=== PATIENT | female | born 1930 | race Caucasian/White ===

== ENCOUNTER → 2017-02-10 | Outpatient (CLI) | payer MEDICARE | LOC: RAD 09:42 | PROVIDERS: ATTEND Internal Medicine Geriatric Medicine | DX: R10.9 Unspecified abdominal pain (principal) | CPT/HCPCS: 74177; 82565 ==

== ENCOUNTER 2018-10-05 17:56 | Observation (INO) | payer MEDICARE ==
[2018-10-05] MEDS ORDERED: NORMAL SALINE 1000 ML 1,000 ML IV PRN (18:27)
--- NOTE | 2018-10-05 18:58 | PDOC H&P ---
History of Present Illness Admission Date/PCP: 10/05/18 17:56 TERE OSUNKOYA Patient complains of: Dizziness, Shortness of breath, chest pain History of Present Illness: NIKA LUND is a 88 year old female patient known to my practice who presented to the office for scheduled follow up evaluation for hypertension, chronic atrial fibrillation, and coronary arteriosclerosis. She reported not feeling well with listed symptoms and poor appetite and oral intake. She denied any nausea, vomiting, or abdominal pain. No palpitation, orthopnea, or leg swelling. she reported compliance with medications as prescribed. She denied excessive salt or fluid intake. No reported coughing or sputum production. No fever or chills. Her office evaluation revealed significant hypotension with manual reading as low as 77/35 mmHg. In view of findings and associated symptoms as well as advance age she was advised hospitalization to observation telemetry bed for further evaluation and management. 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 Past Medical History Cardiac Medical History: Reports: Atrial Fibrillation, Myocardial Infarction - age 50/stress test dilip olivia 6-8 mo ago ok, Heart Murmur Denies: Congestive Heart Failure, Coronary Artery Disease, Hyperlipidema, Hypertension, Peripheral Vascular Disease, Pulmonary Embolism Pulmonary Medical History: Reports: Asthma, Chronic Obstructive Pulmonary Disease (COPD), Pneumonia - 1 mo ago,found on CT scan, Sleep Apnea - occas c pap Denies: Bronchitis, Respiratory Failure, Tuberculosis Neurological Medical History: Denies: Seizures Renal/ Medical History: Denies: End Stage Renal Disease Malignancy Medical History: Reports: Breast Cancer, Skin Cancer Denies: Cervical Cancer, Lung Cancer, Ovarian Cancer GI Medical History: Reports: Gastroesophageal Reflux Disease Denies: Crohn's Disease, Hepatitis, Hiatal Hernia Musculoskeltal Medical History: Reports: Arthritis - hips,knees,groin Denies: Fibromyalgia Psychiatric Medical History: Reports: Depression Denies: Dementia Hematology: Reports: Anemia - HX OF Denies: Sickle Cell Disease Past Surgical History Past Surgical History: Reports: Cardiac Catheterization, Cholecystectomy, Mastectomy, Tubal Ligation Denies: Amputation, Appendectomy, Section, Colostomy, Coronary Artery Bypass Graft, Gastric Bypass Surgery, Herniorrhaphy, Hysterectomy, Pacemaker, Tonsillectomy Social History Smoking Status: Never Smoker Frequency of Alcohol Use: None Hx Recreational Drug Use: No Hx Prescription Drug Abuse: No Family History Family History: Reviewed & Not Pertinent Parental Family History Reviewed: Yes Children Family History Reviewed: Yes Sibling(s) Family History Reviewed.: Yes Medication/Allergy Home Medications: Omeprazole [Prilosec 20 mg Capsule] 20 mg PO DAILY 06/08/12 Ondansetron HCl [Zofran 4 mg Tablet] 1 tab PO Q6H PRN 01/06/13 Oxycodone HCl 15 mg PO Q4H PRN 01/06/13 Folic Acid/Multivit-Min/Lutein [Centrum Silver Chewable Tablet] 1 tab PO DAILY 09/11/13 Albuterol Sulfate [Proair HFA] 2 puff IH BID 12/20/14 Budesonide/Formoterol Fumarate [Symbicort HFA 160-4.5 mcg Inhaler 6 gm] 2 puff IH Q12 12/20/14 Cetirizine HCl [Zyrtec 10 mg Tablet] 1 tab PO DAILY 12/20/14 Cyanocobalamin (Vitamin B-12) [Vitamin B-12] 1,000 mcg PO DAILY 12/20/14 [place]-3 Fatty Acids/Fish Oil [[place] 3 Fish Oil Softgel] 1 each PO DAILY 12/20/14 Polyethylene Glycol 3350 [Miralax Powder 17 gm/Packet] 1 packet PO QHS 12/20/14 Apixaban [Eliquis 2.5 mg Tablet] 2.5 mg PO BID #60 tablet 09/16/15 Diltiazem HCl [Cardizem Cd 120 mg Capsule] 1 cap.sr PO DAILY #30 cap.sr 09/16/15 Albuterol Sulfate [Ventolin 0.083% Neb 2.5 mg/3 mL Ampul] 2.5 mg NEB Q4HP PRN #60 vial.neb 04/21/16 Azithromycin 250 mg PO DAILY #4 tablet 04/21/16 Prednisone [Deltasone 20 mg Tablet] 3 tab PO DAILY 5 Days tablet 04/21/16 Allergies/Adverse Reactions: acetaminophen [From Tylenol] Allergy (Severe, Verified 12/27/12 10:53) heart races diphenhydramine HCl [From Benadryl] Allergy (Severe, Verified 11/18/12 22:00) [employer] esomeprazole magnesium [From Nexium] Allergy (Severe, Verified 12/27/12 10:53) swelling rofecoxib [From Vioxx] Allergy (Severe, Verified 09/08/13 14:29) Flushing ciprofloxacin [From Cipro] Adverse Reaction (Severe, Verified 09/12/15 12:09) SAME LEVAQUIN levofloxacin [From Levaquin] Adverse Reaction (Severe, Verified 09/12/15 12:10) VEIN REACTION DURING INJECTION Review of Systems Constitutional: PRESENT: anorexia, fatigue, weakness. ABSENT: as per HPI, chills, fever(s), headache(s), night sweats, weight gain, weight loss, other Eyes: PRESENT: visual disturbances - correction with glasses Ears: PRESENT: hearing changes Nose, Mouth, and Throat: ABSENT: as per HPI, headache(s), mouth pain, sore throat, vertigo, other Cardiovascular: PRESENT: chest pain - more localized to posterior region around left shoulder blade, dyspnea on exertion. ABSENT: as per HPI, edema, orthropnea, palpitations, other Respiratory: PRESENT: dyspnea. ABSENT: as per HPI, cough, hemoptysis, sputum, other Gastrointestinal: ABSENT: abdominal pain, constipation, diarrhea, hematemesis, hematochezia, nausea, vomiting Genitourinary: ABSENT: dysuria, hematuria Musculoskeletal: PRESENT: deformity - related to multiple joints involvement with arthritis Integumentary: ABSENT: rash, wounds Neurological: PRESENT: abnormal gait - ambulate with straight cane assistance, dizziness, weakness - generalized. ABSENT: as per HPI, abnormal movements, abnormal speech, confusion, convulsions, focal weakness, frequent falls, lack of coordination, memory loss, numbness, paresthesias, restless legs, syncope, tingling, tremor(s), vertigo, other Psychiatric: ABSENT: anxiety, depression, homidical ideation, suicidal ideation Endocrine: ABSENT: cold intolerance, heat intolerance, polydipsia, polyuria Hematologic/Lymphatic: ABSENT: easy bleeding, easy bruising, lymphadenopathy Allergic/Immunologic: ABSENT: seasonal rhinorrhea Physical Exam General appearance: PRESENT: no acute distress, obese Head exam: PRESENT: atraumatic, normocephalic Eye exam: PRESENT: conjunctiva pink, EOMI, PERRLA. ABSENT: scleral icterus Ear exam: PRESENT: normal external ear exam Mouth exam: PRESENT: moist - fairly Neck exam: PRESENT: full ROM. ABSENT: carotid bruit, JVD, lymphadenopathy, thyromegaly Respiratory exam: PRESENT: clear to auscultation belle Cardiovascular exam: PRESENT: irregular rhythm, +S1, +S2. ABSENT: diastolic murmur, systolic murmur Pulses: PRESENT: +1 pedal pulses bilateral Vascular exam: PRESENT: normal capillary refill. ABSENT: pallor GI/Abdominal exam: PRESENT: normal bowel sounds, soft. ABSENT: distended, guarding, mass, organolmegaly, rebound, tenderness Rectal exam: PRESENT: deferred Extremities exam: ABSENT: pedal edema Musculoskeletal exam: PRESENT: ambulatory - with staright cane assistance, deformity - related to multiple joints involvement with arthritis Neurological exam: PRESENT: alert, awake, oriented to person, oriented to place, oriented to time, oriented to situation, CN II-XII grossly intact. ABSENT: motor sensory deficit Psychiatric exam: PRESENT: appropriate affect, normal mood. ABSENT: homicidal ideation, suicidal ideation Skin exam: PRESENT: dry, warm Results Laboratory Results: Requested admission laboratory testings are pending at the time of my documentation. Assessment & Plan - Diagnosis (1) Hypotension due to hypovolemia Is this a current diagnosis for this admission?: Yes Plan: Patient will receive IV fluid normal saline bolus infusion 1 liter and thereafter maintain at 100 ml /hour. Hold Lasix usage. (2) Dizziness of unknown cause Is this a current diagnosis for this admission?: Yes Plan: Probably due to hypovolemia and resultant hypotension. Patient will receive IV fluid normal saline bolus infusion 1 liter and thereafter maintain at 100 ml /hour. (3) Chest pain of unknown etiology Is this a current diagnosis for this admission?: Yes Plan: Less likely cardiac source but in view of her age and co-morbidities, I will obtain 1ead EKG with serial cardiac enzymes evaluation. (4) Chronic atrial fibrillation Is this a current diagnosis for this admission?: Yes Plan: Continue preadmission medication management. (5) COPD (chronic obstructive pulmonary disease) Qualifiers: COPD type: unspecified COPD Qualified Code(s): J44.9 - Chronic obstructive pulmonary disease, unspecified Is this a current diagnosis for this admission?: Yes Plan: Continue preadmission medication management. (6) Hypothyroidism Qualifiers: Hypothyroidism type: unspecified Qualified Code(s): E03.9 - Hypothyroidism, unspecified Is this a current diagnosis for this admission?: Yes Plan: Continue preadmission medication management. (7) Osteoarthritis involving multiple joints on both sides of body Is this a current diagnosis for this admission?: Yes Plan: Continue preadmission medication management. (8) Chronic pain syndrome Is this a current diagnosis for this admission?: Yes Plan: Continue preadmission medication management. (9) Use of opiates for therapeutic purposes Is this a current diagnosis for this admission?: Yes Plan: Continue preadmission medication management. - Time Time Spent: 50 to 70 Minutes - Inpatient Certification Based on my medical assessment, after consideration of the patient's comorbidities, presenting symptoms, or acuity I expect that the services needed warrant INPATIENT care.: No I certify that my determination is in accordance with my understanding of Medicare's requirements for reasonable and necessary INPATIENT services [42 CFR 412.3e].: No - Plan Summary Plan Summary: See admitting attending physician orders as per outline care plan.
[2018-10-05] MEDS ORDERED: NORMAL SALINE 1000 ML 1,000 ML IV ONE (19:00)
[2018-10-05 19:30] LABS: ABSOLUTE EOSINOPHILS # (AUTO) 0.1 10^3/uL (0.0-0.6); ABSOLUTE LYMPHOCYTES (AUTO) 2.3 10^3/uL (0.5-4.7); ABSOLUTE MONOCYTES (AUTO) 0.5 10^3/uL (0.1-1.4); ABSOLUTE NEUT (AUTO) 4.6 10^3/uL (1.7-8.2); BASOPHILS % (AUTO) 0.3 % (0-2); EOSINOPHILS % (AUTO) 1.3 % (0-6); HEMATOCRIT 35.9 % (36.0-47.0); HEMOGLOBIN 12.1 g/dL (12.0-15.5); LYMPHOCYTES % (AUTO) 31.1 % (13-45); MEAN CORPUSCULAR HEMOGLOBIN 30.4 pg (27.0-33.4); MEAN CORPUSCULAR HGB CONC 33.6 g/dL (32.0-36.0); MEAN CORPUSCULAR VOLUME 91 fl (80-97); MONOCYTES % (AUTO) 6.3 % (3-13); PLATELET COUNT 186 10^3/uL (150-450); RED BLOOD COUNT 3.97 10^6/uL (3.72-5.28); RED CELL DISTRIBUTION WIDTH 13.8 % (11.5-14.0); TOTAL CELLS COUNTED % (AUTO) 100 %; WHITE BLOOD COUNT 7.5 10^3/uL (4.0-10.5)
[2018-10-05 19:57] LABS: ALANINE AMINOTRANSFERASE 21 U/L (9-52); ALBUMIN 3.9 g/dL (3.5-5.0); ALKALINE PHOSPHATASE 118 U/L (38-126); ANION GAP 7 (5-19); ASPARTATE AMINO TRANSFERASE 28 U/L (14-36); BILIRUBIN,DIRECT 0.3 mg/dL (0.0-0.4); BILIRUBIN,TOTAL 0.4 mg/dL (0.2-1.3); BLOOD UREA NITROGEN 10 mg/dL (7-20); CALCIUM 9.9 mg/dL (8.4-10.2); CARBON DIOXIDE 27 mmol/L (22-30); CHLORIDE 104 mmol/L (98-107); CREATINE KINASE 28 U/L (30-135); GLUCOSE 105 mg/dL (75-110); POTASSIUM 4.2 mmol/L (3.6-5.0); SODIUM 138.4 mmol/L (137-145); TOTAL PROTEIN 6.4 g/dL (6.3-8.2)
[2018-10-05 20:08] LABS: CREATINE KINASE MB 0.54 ng/mL (<4.55)
[2018-10-05 20:24] LABS: TROPONIN I < 0.012 ng/mL
[2018-10-05] MEDS ORDERED: OXYCODONE HCL IR 5 MG TABLET PO PRN (22:33)
[2018-10-05] MEDS ORDERED: SIMETHICONE 80 MG TAB.CHEW PO PRN (22:33)
[2018-10-05] MEDS ORDERED: ALBUTEROL SULFATE HFA (90 MCG/PUFF) 200 PUFF/8.5 GM MDI IH PRN (22:33)
[2018-10-05] MEDS ORDERED: NITROGLYCERIN 0.4 MG/TAB 25 TAB/BOTTLE SL PRN (22:33)
--- NOTE | 2018-10-05 22:42 | RADIOLOGY REPORT (SQ) ---
EXAM DESCRIPTION: XR CHEST 2 VIEWS COMPLETED DATE/TME: 10/05/2018 00:00 CLINICAL HISTORY: 88 years Female, chest pain, shortness of breath COMPARISON: 04/21/16 NUMBER OF VIEWS/TECHNIQUE: 2, Frontal, Lateral FINDINGS: Increased lung volume, new small bandlike and streaky opacities of the left lower lung field, normal cardiac silhouette, atherosclerosis, and intact bony thorax.Upper abdominal clips. IMPRESSION: Small left lower lobar atelectasis/pneumonia.
[2018-10-05] MEDS ORDERED: APIXABAN 2.5 MG TABLET PO ONE (23:30)
[2018-10-06] MEDS: FAMOTIDINE 20 MG TABLET PO SCH ×2 (00:34→10:57)
[2018-10-06] MEDS ORDERED: APIXABAN 2.5 MG TABLET ONE (01:11)
[2018-10-06 01:47] LABS: CREATINE KINASE MB 0.36 ng/mL (<4.55)
[2018-10-06 01:52] LABS: TROPONIN I < 0.012 ng/mL
[2018-10-06 08:39] LABS: TROPONIN I < 0.012 ng/mL
[2018-10-06] MEDS ORDERED: POLYETHYLENE GLYCOL 3350 POWDER 17 GM/1 PACKET PO SCH (10:00)
[2018-10-06] MEDS ORDERED: CYANOCOBALAMIN (VITAMIN B-12) 1,000 MCG TABLET PO SCH (10:00)
[2018-10-06] MEDS ORDERED: CETIRIZINE 5 MG TABLET PO SCH (10:00)
[2018-10-06] MEDS ORDERED: APIXABAN 2.5 MG TABLET PO SCH (10:00)
[2018-10-06] MEDS ORDERED: METOPROLOL TARTRATE 50 MG TABLET PO SCH (10:00)
[2018-10-06] MEDS ORDERED: BUDESONIDE/FORMOTEROL 160-4.5 MCG 60 PUFF/6 GM MDI IH SCH (10:00)
[2018-10-06] MEDS ORDERED: OMEGA-3 ACID ETHYL ESTERS 1 GM CAPSULE PO SCH (10:00)
[2018-10-06] MEDS ORDERED: DILTIAZEM HCL 120 MG CAP.SR.24H PO SCH (10:00)
--- NOTE | 2018-10-06 13:39 | EKG REPORT ---
SEVERITY:- ABNORMAL ECG - ATRIAL FIBRILLATION BORDERLINE LEFT AXIS DEVIATION LOW VOLTAGE THROUGHOUT : Confirmed by: Marisol Grey MD 06-Oct-2018 13:39:00
--- NOTE | 2018-10-06 18:00 | PDOC DISCHARGE SUMMARY ---
General - Admit/Disc Date/PCP Admission Date/Primary Care Provider: 10/05/18 17:56 TERE PETROS Discharge Date: 10/06/18 - Discharge Diagnosis (1) Hypotension due to hypovolemia Is this a current diagnosis for this admission?: Yes (2) Dizziness of unknown cause Is this a current diagnosis for this admission?: Yes (3) Chest pain of unknown etiology Is this a current diagnosis for this admission?: Yes (4) Chronic atrial fibrillation Is this a current diagnosis for this admission?: Yes (5) COPD (chronic obstructive pulmonary disease) Is this a current diagnosis for this admission?: Yes (6) Hypothyroidism Is this a current diagnosis for this admission?: Yes (7) Osteoarthritis involving multiple joints on both sides of body Is this a current diagnosis for this admission?: Yes (8) Chronic pain syndrome Is this a current diagnosis for this admission?: Yes (9) Use of opiates for therapeutic purposes Is this a current diagnosis for this admission?: Yes - Additional Information Home Medications: Albuterol Sulfate [Proair HFA Inhalation Aerosol 8.5 gm MDI] 2 puff IH Q12HP PRN 10/05/18 Apixaban [Eliquis 2.5 mg Tablet] 2.5 mg PO Q12 10/05/18 Budesonide/Formoterol Fumarate [Symbicort HFA 160-4.5 mcg Inhaler 6 gm] 2 puff IH Q12 10/05/18 Cyanocobalamin (Vitamin B-12) [Vitamin B-12 1000 mcg Tablet] 1,000 mcg PO DAILY 10/05/18 Dexlansoprazole [Dexilant 60 mg Capsule] 60 mg PO DAILY 10/05/18 Diltiazem HCl [Diltiazem 24Hr ER] 120 mg PO DAILY 10/05/18 Levocetirizine Dihydrochloride [Xyzal] 5 mg PO DAILY 10/05/18 Metoprolol Tartrate [Lopressor 50 mg Tablet] 50 mg PO Q12 10/05/18 Nitroglycerin [Nitrostat 0.4 mg (1/150 Gr) Tabs 25/Bottle] 0.4 mg SL Q5MP PRN 10/05/18 [place]-3 Fatty Acids/Fish Oil [Fish Oil 1,000 mg Capsule] 1 cap PO DAILY 10/05/18 Oxycodone HCl 15 mg PO Q6HP PRN 10/05/18 Polyethylene Glycol 3350 [Miralax Powder 17 gm/Packet] 17 gm PO DAILY 10/05/18 Simethicone [Gas-X] 125 mg PO QIDP PRN 10/05/18 History of Present Illness Patient complains of: Dizziness, Shortness of breath, chest pain History of Present Illness: NIKA LUND is a 88 year old female patient known to my practice who presented to the office for scheduled follow up evaluation for hypertension, chronic atrial fibrillation, and coronary arteriosclerosis. She reported not feeling well with listed symptoms and poor appetite and oral intake. She denied any nausea, vomiting, or abdominal pain. No palpitation, orthopnea, or leg swelling. she reported compliance with medications as prescribed. She denied excessive salt or fluid intake. No reported coughing or sputum production. No fever or chills. Her office evaluation revealed significant hypotension with manual reading as low as 77/35 mmHg. In view of findings and associated symptoms as well as advance age she was advised hospitalization to observation telemetry bed for further evaluation and management. 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 Hospital Course Hospital Course: She was managed with IV normal saline hydration with resolution of her presenting symptoms including dizziness, shortness of breath, and chest pain. Her cardiac evaluation with serial cardiac enzymes and EKG were within normal range. Her laboratory assessment did not suggest any significant electrolyte abnormality. In view of her low blood pressure she was instructed to continue withholding Lasix usage. She will follow up in the office as instructed upon discharge. Physical Exam Vital Signs: Temp Pulse Resp BP Pulse Ox 98.3 F 60 16 100/49 L 98 10/06/18 16:19 10/06/18 16:19 10/06/18 16:19 10/06/18 16:19 10/06/18 16:19 Intake & Output 10/05/18 10/06/18 10/07/18 06:59 06:59 06:59 Intake Total 877 218 Balance 877 218 Weight 61.4 kg General appearance: PRESENT: no acute distress Head exam: PRESENT: atraumatic, normocephalic Eye exam: PRESENT: conjunctiva pink, EOMI, PERRLA. ABSENT: scleral icterus Ear exam: PRESENT: normal external ear exam Mouth exam: PRESENT: moist Respiratory exam: PRESENT: clear to auscultation belle Cardiovascular exam: PRESENT: irregular rhythm, +S1, +S2. ABSENT: diastolic murmur, systolic murmur Vascular exam: PRESENT: normal capillary refill. ABSENT: pallor GI/Abdominal exam: PRESENT: normal bowel sounds, soft. ABSENT: distended, guarding, mass, organolmegaly, rebound, tenderness Extremities exam: ABSENT: pedal edema Musculoskeletal exam: PRESENT: deformity - relatd to multiple joints involvement with athritis Neurological exam: PRESENT: alert, awake, oriented to person, oriented to place, oriented to time, oriented to situation, CN II-XII grossly intact. ABSENT: motor sensory deficit Psychiatric exam: PRESENT: appropriate affect, normal mood. ABSENT: homicidal ideation, suicidal ideation Skin exam: PRESENT: dry, warm Results Laboratory Results: 10/05/18 19:21 10/05/18 19:21 10/05/18 10/05/18 19:21 19:21 WBC 7.5 RBC 3.97 Hgb 12.1 Hct 35.9 L MCV 91 MCH 30.4 MCHC 33.6 RDW 13.8 Plt Count 186 Seg Neutrophils % 61.0 Lymphocytes % 31.1 Monocytes % 6.3 Eosinophils % 1.3 Basophils % 0.3 Absolute Neutrophils 4.6 Absolute Lymphocytes 2.3 Absolute Monocytes 0.5 Absolute Eosinophils 0.1 Absolute Basophils 0.0 Sodium 138.4 Potassium 4.2 Chloride 104 Carbon Dioxide 27 Anion Gap 7 BUN 10 Creatinine 0.84 Est GFR ( Amer) > 60 Est GFR (Non-Af Amer) > 60 Glucose 105 Calcium 9.9 Total Bilirubin 0.4 AST 28 ALT 21 Alkaline Phosphatase 118 Total Protein 6.4 Albumin 3.9 10/05/18 10/05/18 10/06/18 19:21 19:21 01:16 Creatine Kinase 28 L 22 L CK-MB (CK-2) 0.54 Troponin I < 0.012 10/06/18 10/06/18 10/06/18 01:16 07:20 07:20 Creatine Kinase 21 L CK-MB (CK-2) 0.36 0.40 Troponin I < 0.012 < 0.012 Impressions: Chest X-Ray 10/05/18 00:00 IMPRESSION: Small left lower lobar atelectasis/pneumonia. Qualifiers - * PATIENT BEING DISCHARGED WITH ANY OF THE FOLLOWING DIAGNOSIS: No Plan Discharge Plan: D/C Home today., Follow up in the office as instructed upon discharge.
[2018-10-06 18:40] VITALS: BP 124/74
== END 2018-10-06 19:18 | disposition home or self-care (01) ==
LOC: 4W 17:56
PROVIDERS: ADMIT Internal Medicine Geriatric Medicine; ATTEND Internal Medicine Geriatric Medicine
DX: I95.89 Other hypotension (principal); E86.1 Hypovolemia; R07.89 Other chest pain; R42 Dizziness and giddiness; I48.2 Chronic atrial fibrillation; J44.9 Chronic obstructive pulmonary disease, unspecified; E03.9 Hypothyroidism, unspecified; M15.8 Other polyosteoarthritis; G89.4 Chronic pain syndrome; I10 Essential (primary) hypertension; I25.10 Atherosclerotic heart disease of native coronary artery without angina pectoris; I25.2 Old myocardial infarction; K21.9 Gastro-esophageal reflux disease without esophagitis; G47.33 Obstructive sleep apnea (adult) (pediatric); R63.0 Anorexia; M1A.9XX0 Chronic gout, unspecified, without tophus (tophi); R53.1 Weakness; R26.9 Unspecified abnormalities of gait and mobility; Z79.891 Long term (current) use of opiate analgesic; Z79.899 Other long term (current) drug therapy; Z23 Encounter for immunization; Z85.3 Personal history of malignant neoplasm of breast; Z85.828 Personal history of other malignant neoplasm of skin; Z90.49 Acquired absence of other specified parts of digestive tract; Z90.10 Acquired absence of unspecified breast and nipple
CPT/HCPCS: 36415 ×2; 82553 ×2; 82550 ×2; 85025; 80053 ×2; 84484 ×2; 71046; 90686; 93005; 93010; G0378 ×2; G0379; G0008; A9270 ×8; J3490; J7030 ×2; 90471

== ENCOUNTER 2020-08-07 05:03 | Emergency (ER) | payer MEDICARE ==
[2020-08-07 06:59] LABS: APPEARANCE,URINE CLEAR; BILIRUBIN,URINE NEGATIVE (NEGATIVE); COLOR,URINE YELLOW; GLUCOSE, URINE NEGATIVE (NEGATIVE); KETONES,URINE NEGATIVE (NEGATIVE); LEUKOCYTE ESTERASE,URINE NEGATIVE (NEGATIVE); NITRITE,URINE NEGATIVE (NEGATIVE); PROTEIN,URINE NEGATIVE (NEGATIVE); URINE SPECIFIC GRAVITY 1.006; UROBILINOGEN,URINE NEGATIVE mg/dL (<2.0)
[2020-08-07 07:02] LABS: ABSOLUTE EOSINOPHILS # (AUTO) 0.1 10^3/uL (0.0-0.6); ABSOLUTE LYMPHOCYTES (AUTO) 2.1 10^3/uL (0.5-4.7); ABSOLUTE MONOCYTES (AUTO) 0.5 10^3/uL (0.1-1.4); ABSOLUTE NEUT (AUTO) 4.5 10^3/uL (1.7-8.2); BASOPHILS % (AUTO) 0.3 % (0-2); EOSINOPHILS % (AUTO) 1.9 % (0-6); HEMATOCRIT 32.6 % (36.0-47.0); HEMOGLOBIN 11.2 g/dL (12.0-15.5); LYMPHOCYTES % (AUTO) 28.5 % (13-45); MEAN CORPUSCULAR HGB CONC 34.4 g/dL (32.0-36.0); MEAN CORPUSCULAR VOLUME 90 fl (80-97); MONOCYTES % (AUTO) 7.4 % (3-13); PLATELET COUNT 197 10^3/uL (150-450); RED BLOOD COUNT 3.61 10^6/uL (3.72-5.28); RED CELL DISTRIBUTION WIDTH 14.3 % (11.5-14.0); SEGMENTED NEUTROPHILS % (AUTO) 61.9 % (42-78); TOTAL CELLS COUNTED % (AUTO) 100 %; WHITE BLOOD COUNT 7.2 10^3/uL (4.0-10.5)
[2020-08-07 07:23] LABS: ALBUMIN 3.2 g/dL (3.5-5.0); ALKALINE PHOSPHATASE 128 U/L (38-126); ASPARTATE AMINO TRANSFERASE 44 U/L (14-36); BILIRUBIN,DIRECT 0.2 mg/dL (0.0-0.4); BILIRUBIN,TOTAL 0.6 mg/dL (0.2-1.3); BLOOD UREA NITROGEN 16 mg/dL (7-20); CALCIUM 9.5 mg/dL (8.4-10.2); CARBON DIOXIDE 30 mmol/L (22-30); CHLORIDE 95 mmol/L (98-107); CREATINE KINASE 28 U/L (30-135); GLUCOSE 103 mg/dL (75-110); POTASSIUM 4.3 mmol/L (3.6-5.0); TOTAL PROTEIN 5.8 g/dL (6.3-8.2)
[2020-08-07 07:30] LABS: ANION GAP 4 (5-19)
[2020-08-07 07:34] LABS: CREATINE KINASE MB 0.67 ng/mL (<4.55)
[2020-08-07 07:36] LABS: TROPONIN I < 0.012 ng/mL
--- NOTE | 2020-08-07 07:52 | ER Document Report ---
ED Medical Screen (RME) - General Chief Complaint: General Weakness Stated Complaint: NECK PAIN Time Seen by Provider: 08/07/20 07:27 Primary Care Provider: TERE MORRELL MD [Primary Care Provider] - Follow up as needed TRAVEL OUTSIDE OF THE [place] IN LAST 30 DAYS: No - HPI Notes: Patient is a 89 y/o female with a hx of a-fib who presents with generalized weakness. Patient was seen at [facility] for syncopal episode and hypotension four days ago. She was medically cleared and discharged home. One day ago, patient's family became concerned as she went to bed the night before and was still in bed at 4PM in the afternoon the following day. Patient continues to have weakness and fatigue and is unable to ambulate alone. She also endorses left chest wall pain and neck pain. She denies fever, nausea, vomiting and abdominal pain. Daughter states patient has a hx of hypotension. Patient currently takes Elliquis. - Related Data Allergies/Adverse Reactions: acetaminophen [From Tylenol] Allergy (Severe, Verified 12/27/12 10:53) heart races diphenhydramine HCl [From Benadryl] Allergy (Severe, Verified 11/18/12 22:00) [employer] esomeprazole magnesium [From Nexium] Allergy (Severe, Verified 12/27/12 10:53) swelling rofecoxib [From Vioxx] Allergy (Severe, Verified 09/08/13 14:29) Flushing ciprofloxacin [From Cipro] Adverse Reaction (Severe, Verified 09/12/15 12:09) SAME LEVAQUIN levofloxacin [From Levaquin] Adverse Reaction (Severe, Verified 09/12/15 12:10) VEIN REACTION DURING INJECTION Home Medications: see list in chart Past Medical History - Social History Family history: Malignancy - Past Medical History Cardiac Medical History: Reports: Hx Atrial Fibrillation, Hx Heart Attack - age 50/stress test dilip olivia 6-8 mo ago ok, Hx Heart Murmur Denies: Hx Congestive Heart Failure, Hx Coronary Artery Disease, Hx Hypercholesterolemia, Hx Hypertension, Hx Peripheral Vascular Disease, Hx Pulmonary Embolism Pulmonary Medical History: Reports: Hx Asthma, Hx COPD, Hx Pneumonia - 1 mo ago,found on CT scan, Hx Sleep Apnea - occas c pap Denies: Hx Bronchitis, Hx Respiratory Failure, Hx Tuberculosis Neurological Medical History: Denies: Hx Seizures, Hx Parkinson's Disease Renal/ Medical History: Reports: Hx Ovarian Cysts - part ovary removed yrs ago. Denies: Hx End Stage Renal Disease, Hx Kidney Stones Malignancy Medical History: Reports: Hx Breast Cancer, Hx Skin Cancer. Denies: Hx Cervical Cancer, Hx Lung Cancer, Hx Ovarian Cancer GI Medical History: Reports: Hx Gastroesophageal Reflux Disease, Hx Irritable Bowel, Hx Ulcer - ? took meds for H-pylori. Denies: Hx Crohn's Disease, Hx Hepatitis, Hx Hiatal Hernia, Hx Liver Failure, Hx Pancreatitis Musculoskeltal Medical History: Reports Hx Arthritis - hips,knees,groin, Denies Hx Fibromyalgia, Denies Hx Multiple Sclerosis, Denies Hx Muscular Dystrophy Psychiatric Medical History: Reports: Hx Depression Denies: Hx Dementia Traumatic Medical History: Denies: Hx Fractures Infectious Medical History: Denies: Hx Hepatitis Past Surgical History: Reports: Hx Cardiac Catheterization, Hx Cholecystectomy, Hx Mastectomy, Hx Open Heart Surgery, Hx Tubal Ligation. Denies: Hx Appendectomy, Hx Bowel Surgery, Hx Section, Hx Colostomy, Hx Coronary Artery Bypass Graft, Hx Gastric Bypass Surgery, Hx Herniorrhaphy, Hx Hysterectomy, Hx Pacemaker, Hx Tonsillectomy - Immunizations Hx Diphtheria, Pertussis, Tetanus Vaccination: Yes Physical Exam - Vital signs Vitals: Temp Pulse Resp BP Pulse Ox 97.5 F 75 16 133/62 H 100 08/07/20 05:11 08/07/20 05:11 08/07/20 05:11 08/07/20 05:11 08/07/20 05:11 - HEENT Neck: Other - tenderness to posterior neck with limited ROM secondary to pain - Respiratory Breath sounds: Normal Chest palpation: Tender, Other - left chest underneath breast Course - Re-evaluation Re-evalutation: I have greeted and performed a rapid initial assessment of this patient. A comprehensive ED assessment and evaluation of the patient, analysis of test results and completion of medical decision making process will be conducted by an additional ED providers. - Vital Signs Vital signs: Temp Pulse Resp BP Pulse Ox 97.5 F 75 23 H 135/81 H 100 08/07/20 05:11 08/07/20 05:11 08/07/20 06:24 08/07/20 06:24 08/07/20 06:24 - Laboratory Result Diagrams: 08/07/20 06:36 08/07/20 06:36 Laboratory results interpreted by me: 08/07/20 08/07/20 06:36 06:36 RBC 3.61 L Hgb 11.2 L Hct 32.6 L RDW 14.3 H Sodium 129.4 L Chloride 95 L Anion Gap 4 L Est GFR (MDRD) Non-Af 56 L AST 44 H Alkaline Phosphatase 128 H Creatine Kinase 28 L Total Protein 5.8 L Albumin 3.2 L Doctor's Discharge - Discharge Referrals: TERE MORRELL MD [Primary Care Provider] - Follow up as needed
--- NOTE | 2020-08-07 08:49 | RADIOLOGY REPORT (SQ) ---
EXAM DESCRIPTION: CT CERVICAL SPINE WITHOUT IMAGES COMPLETED DATE/TIME: 08/07/2020 8:07 am REASON FOR STUDY: neck pain COMPARISON: None. TECHNIQUE: Axial images acquired through the cervical spine without intravenous contrast. Images re viewed with lung, soft tissue and bone windows. Reconstructed coronal and sagittal MPR images review ed. Images stored on PACS. All CT scanners at this facility use dose modulation, iterative reconstruction, and/or weight based d osing when appropriate to reduce radiation dose to as low as reasonably achievable (ALARA). [facility]: Dose Right [facility]: CareDose [facility]: Dose Right [facility]: Teradose 4D [facility]: Demohour RADIATION DOSE: CT Rad equipment meets quality standard of care and radiation dose reduction techniq ues were employed. CTDIvol: 16.9 mGy. DLP: 319 mGy-cm. mGy. LIMITATIONS: None. FINDINGS: ALIGNMENT: Mild malalignment C5-6. MINERALIZATION: Normal. VERTEBRAL BODIES: No fractures or dislocation. DISCS: Multilevel disc space narrowing with osteophytes. FACETS, LATERAL MASSES, POSTERIOR ELEMENTS: Facet arthropathy. No fractures. No dislocation. No ac inge findings. HARDWARE: None in the spine. VISUALIZED RIBS: No fractures. LUNG APICES AND SOFT TISSUES: No significant or acute findings. OTHER: No other significant finding. IMPRESSION: CHRONIC DEGENERATIVE CHANGES. NO ACUTE FINDINGS. TECHNICAL DOCUMENTATION: JOB ID: [id number] Quality ID # [id number]: Final reports with documentation of one or more dose reduction techniques (e.g., Au tomated exposure control, adjustment of the mA and/or kV according to patient size, use of iterative reconstruction technique) 2010 [employer]- All Rights Reserved Reading location - IP/workstation name: [email or web address]
--- NOTE | 2020-08-07 08:52 | RADIOLOGY REPORT (SQ) ---
EXAM DESCRIPTION: CT THORACIC SPINE WITHOUT IMAGES COMPLETED DATE/TIME: 08/07/2020 8:07 am REASON FOR STUDY: neck pain COMPARISON: None. TECHNIQUE: Axial images acquired through the thoracic spine without intravenous contrast. Images re viewed with lung, soft tissue and bone windows. Reconstructed coronal and sagittal MPR images review ed. Images stored on PACS. All CT scanners at this facility use dose modulation, iterative reconstruction, and/or weight based d osing when appropriate to reduce radiation dose to as low as reasonably achievable (ALARA). [facility]: Dose Right [facility]: CareDose [facility]: Dose Right [facility]: Teradose 4D [facility]: [employer] RADIATION DOSE: CT Rad equipment meets quality standard of care and radiation dose reduction techniq ues were employed. CTDIvol: 94.0 mGy. DLP: 3162 mGy-cm. mGy. LIMITATIONS: None. FINDINGS: VISUALIZED LUNGS: No acute opacities. No pneumothorax. SOFT TISSUES: No soft tissue swelling. No masses. VERTEBRAL BODIES: No fractures. No dislocation. No acute findings. 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 ALIGNMENT: Moderate convex right scoliosis. TRANSVERSE PROCESSES, POSTERIOR ELEMENTS: Hypertrophic osteophytes at multiple levels. HARDWARE: None in the spine. VISUALIZED RIBS: No fractures. OTHER: No other significant finding. IMPRESSION: CHRONIC DEGENERATIVE CHANGES WITHOUT ACUTE FRACTURE. TECHNICAL DOCUMENTATION: JOB ID: [id number] Quality ID # [id number]: Final reports with documentation of one or more dose reduction techniques (e.g., Au tomated exposure control, adjustment of the mA and/or kV according to patient size, use of iterative reconstruction technique) 2010 [employer]- All Rights Reserved Reading location - IP/workstation name: [email or web address]
[2020-08-07] MEDS ORDERED: MORPHINE SULFATE 10 MG/ML INJ IV ONE (09:42)
[2020-08-07] MEDS ORDERED: ONDANSETRON HCL INJ/PF 4 MG/2 ML SDV IV ONE (09:42)
--- NOTE | 2020-08-07 11:04 | ER Document Report ---
ED General - General Chief Complaint: General Weakness Stated Complaint: NECK PAIN Time Seen by Provider: 08/07/20 07:27 Primary Care Provider: TERE MORRELL MD [Primary Care Provider] - Follow up tomorrow Information source: Patient TRAVEL OUTSIDE OF THE [place] IN LAST 30 DAYS: No - HPI Notes: Patient presents with chest pain and neck pain. She states that she is not sure if these 2 pains are related. She is had the neck pain for about 3 weeks and the chest pain for about 2 weeks. Both pains are a sharp pain. Both pains do not have significant radiation. The neck pain seems to be worse with movement and better with rest. Nothing makes the chest pain better or worse. She has had some shortness of breath. She states she recently had "hayfever". She was called in a prescription by her family physician and this has improved. She states this was the only time she had a cough. She does not currently have a cough. 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 She does have a history of chronic atrial fibrillation. No recent falls or trauma. No recent fevers. - Related Data Allergies/Adverse Reactions: acetaminophen [From Tylenol] Allergy (Severe, Verified 12/27/12 10:53) heart races diphenhydramine HCl [From Benadryl] Allergy (Severe, Verified 11/18/12 22:00) MUSCLES JERK AND JUMP esomeprazole magnesium [From Nexium] Allergy (Severe, Verified 12/27/12 10:53) swelling rofecoxib [From Vioxx] Allergy (Severe, Verified 09/08/13 14:29) Flushing ciprofloxacin [From Cipro] Adverse Reaction (Severe, Verified 09/12/15 12:09) SAME LEVAQUIN levofloxacin [From Levaquin] Adverse Reaction (Severe, Verified 09/12/15 12:10) VEIN REACTION DURING INJECTION Home Medications: see list in chart Past Medical History - General Information source: Patient - Social History Smoking Status: Never Smoker Frequency of alcohol use: None Drug Abuse: None Family History: Reviewed & Not Pertinent - Past Medical History Cardiac Medical History: Reports: Hx Atrial Fibrillation, Hx Heart Attack - age 50/stress test dilip olivia 6-8 mo ago ok, Hx Heart Murmur Denies: Hx Congestive Heart Failure, Hx Coronary Artery Disease, Hx Hypercholesterolemia, Hx Hypertension, Hx Peripheral Vascular Disease, Hx Pulmonary Embolism Pulmonary Medical History: Reports: Hx Asthma, Hx COPD, Hx Pneumonia - 1 mo ago,found on CT scan, Hx Sleep Apnea - occas c pap Denies: Hx Bronchitis, Hx Respiratory Failure, Hx Tuberculosis Neurological Medical History: Denies: Hx Seizures, Hx Parkinson's Disease Renal/ Medical History: Reports: Hx Ovarian Cysts - part ovary removed yrs ago. Denies: Hx End Stage Renal Disease, Hx Kidney Stones Malignancy Medical History: Reports: Hx Breast Cancer, Hx Skin Cancer. Denies: Hx Cervical Cancer, Hx Lung Cancer, Hx Ovarian Cancer GI Medical History: Reports: Hx Gastroesophageal Reflux Disease, Hx Irritable Bowel, Hx Ulcer - ? took meds for H-pylori. Denies: Hx Crohn's Disease, Hx Hepatitis, Hx Hiatal Hernia, Hx Liver Failure, Hx Pancreatitis Musculoskeletal Medical History: Reports Hx Arthritis - hips,knees,groin, Denies Hx Fibromyalgia, Denies Hx Multiple Sclerosis, Denies Hx Muscular Dystrophy Psychiatric Medical History: Reports: Hx Depression Denies: Hx Dementia Traumatic Medical History: Denies: Hx Fractures Infectious Medical History: Denies: Hx Hepatitis Past Surgical History: Reports: Hx Cardiac Catheterization, Hx Cholecystectomy, Hx Mastectomy, Hx Open Heart Surgery, Hx Tubal Ligation. Denies: Hx Appendectomy, Hx Bowel Surgery, Hx Section, Hx Colostomy, Hx Coronary Artery Bypass Graft, Hx Gastric Bypass Surgery, Hx Herniorrhaphy, Hx Hysterectomy, Hx Pacemaker, Hx Tonsillectomy - Immunizations Hx Diphtheria, Pertussis, Tetanus Vaccination: Yes Hx Pneumococcal Vaccination: 07/04/15 Review of Systems - Review of Systems Constitutional: denies: Chills, Fever Cardiovascular: Chest pain. denies: Palpitations Respiratory: Cough, Short of breath -: Yes All other systems reviewed and negative Physical Exam - Vital signs Vitals: Temp Pulse Resp BP Pulse Ox 97.5 F 75 16 133/62 H 100 08/07/20 05:11 08/07/20 05:11 08/07/20 05:11 08/07/20 05:11 08/07/20 05:11 Interpretation: Normal - General General appearance: Appears well, Alert - HEENT Head: Normocephalic, Atraumatic Eyes: Normal Pupils: PERRL Neck: Other - Posterior C-spine was diffusely tender to palpation mainly over the lower aspect of the C-spine. It was primarily bony tenderness. She did have mostly full range of motion of the neck although some pain with flexion. - Respiratory Respiratory status: No respiratory distress Chest status: Nontender Breath sounds: Normal Chest palpation: Normal - Cardiovascular Rhythm: Regular Heart sounds: Normal auscultation Murmur: No - Abdominal Inspection: Normal Distension: No distension Bowel sounds: Normal Tenderness: Nontender Organomegaly: No organomegaly - Back Back: Normal, Nontender - Extremities General upper extremity: Normal inspection, Nontender, Normal color, Normal ROM, Normal temperature General lower extremity: Normal inspection, Nontender, Normal color, Normal ROM, Normal temperature, Normal weight bearing. No: Petrona's sign - Neurological Neuro grossly intact: Yes Cognition: Normal Orientation: AAOx4 [place] Coma Scale Eye Opening: Spontaneous [place] Coma Scale Verbal: Oriented Mahendra Coma Scale Motor: Obeys Commands Mahendra Coma Scale Total: 15 Speech: Normal Motor strength normal: LUE, RUE, LLE, RLE Sensory: Normal - Psychological Associated symptoms: Normal affect, Normal mood - Skin Skin Temperature: Warm Skin Moisture: Dry Skin Color: Normal Course - Re-evaluation Re-evalutation: 08/07/20 13:26 Patient presents with chest pain and neck pain. I did multiple different types of imaging. I cannot find any acute process such as a vascular or infectious process that would cause the pain. It appears his pain is most likely musculoskeletal in origin. Patient has no evidence of ischemic changes on her EKG. She has 2 - sets of troponins. I did call and discussed the case with the patient's primary care doctor, Dr. Morrell. He asked that the patient be discharged and follow-up with him in the office. I believe this is a reasonable disposition at this point as she has had a significant amount of testing without any acute process identified. - Vital Signs Vital signs: Temp Pulse Resp BP Pulse Ox 97.5 F 75 26 H 133/70 H 87 L 08/07/20 05:11 08/07/20 05:11 08/07/20 08:39 08/07/20 08:39 08/07/20 08:39 - Laboratory Result Diagrams: 08/07/20 11:25 08/07/20 11:25 Laboratory results interpreted by me: 08/07/20 08/07/20 08/07/20 06:36 06:36 11:25 RBC 3.61 L 3.67 L Hgb 11.2 L 11.5 L Hct 32.6 L 33.5 L RDW 14.3 H 14.4 H Sodium 129.4 L Chloride 95 L Anion Gap 4 L Est GFR (MDRD) Non-Af 56 L AST 44 H Alkaline Phosphatase 128 H Creatine Kinase 28 L Total Protein 5.8 L Albumin 3.2 L 08/07/20 11:25 RBC Hgb Hct RDW Sodium 132.0 L Chloride Anion Gap Est GFR (MDRD) Non-Af AST 40 H Alkaline Phosphatase Creatine Kinase Total Protein 5.7 L Albumin 3.1 L - Diagnostic Test Radiology reviewed: Image reviewed, Reports reviewed - EKG Interpretation by Me Rate: Tachycardia - 100 Rhythm: A.Fib Voltage: Decreased voltage Discharge - Discharge Clinical Impression: Cervical pain, Chronic atrial fibrillation Chest pain Qualifiers: Chest pain type: unspecified Qualified Code(s): R07.9 - Chest pain, unspecified Condition: Stable Disposition: HOME, SELF-CARE Instructions: Chest Pain of Unclear Cause ([facility]), Myofascial Pain ([facility]) Additional Instructions: Please call Dr. Morrell to arrange an appointment for soon as possible. Referrals: TERE MORRELL MD [Primary Care Provider] - Follow up tomorrow
[2020-08-07 11:48] LABS: ABSOLUTE EOSINOPHILS # (AUTO) 0.1 10^3/uL (0.0-0.6); ABSOLUTE LYMPHOCYTES (AUTO) 1.6 10^3/uL (0.5-4.7); ABSOLUTE MONOCYTES (AUTO) 0.4 10^3/uL (0.1-1.4); ABSOLUTE NEUT (AUTO) 3.1 10^3/uL (1.7-8.2); BASOPHILS % (AUTO) 0.2 % (0-2); HEMATOCRIT 33.5 % (36.0-47.0); HEMOGLOBIN 11.5 g/dL (12.0-15.5); LYMPHOCYTES % (AUTO) 30.7 % (13-45); MEAN CORPUSCULAR HEMOGLOBIN 31.3 pg (27.0-33.4); MEAN CORPUSCULAR HGB CONC 34.3 g/dL (32.0-36.0); MEAN CORPUSCULAR VOLUME 91 fl (80-97); MONOCYTES % (AUTO) 7.9 % (3-13); PLATELET COUNT 179 10^3/uL (150-450); RED BLOOD COUNT 3.67 10^6/uL (3.72-5.28); RED CELL DISTRIBUTION WIDTH 14.4 % (11.5-14.0); SEGMENTED NEUTROPHILS % (AUTO) 59.2 % (42-78); TOTAL CELLS COUNTED % (AUTO) 100 %; WHITE BLOOD COUNT 5.3 10^3/uL (4.0-10.5)
[2020-08-07 12:09] LABS: ALBUMIN 3.1 g/dL (3.5-5.0); ALKALINE PHOSPHATASE 121 U/L (38-126); ANION GAP 7 (5-19); ASPARTATE AMINO TRANSFERASE 40 U/L (14-36); BILIRUBIN,DIRECT 0.1 mg/dL (0.0-0.4); BILIRUBIN,TOTAL 0.8 mg/dL (0.2-1.3); BLOOD UREA NITROGEN 15 mg/dL (7-20); CALCIUM 9.5 mg/dL (8.4-10.2); CARBON DIOXIDE 27 mmol/L (22-30); CHLORIDE 98 mmol/L (98-107); GLUCOSE 95 mg/dL (75-110); POTASSIUM 3.9 mmol/L (3.6-5.0); TOTAL PROTEIN 5.7 g/dL (6.3-8.2)
--- NOTE | 2020-08-07 14:24 | RADIOLOGY REPORT (SQ) ---
EXAM DESCRIPTION: CHEST SINGLE VIEW IMAGES COMPLETED DATE/TIME: 08/07/2020 8:05 am REASON FOR STUDY: left chest wall pain COMPARISON: 10/05/2018 EXAM PARAMETERS: NUMBER OF VIEWS: One view. TECHNIQUE: Single frontal radiographic view of the chest acquired. RADIATION DOSE: NA LIMITATIONS: None. FINDINGS: LUNGS AND PLEURA: Minimal left retrocardiac airspace disease either atelectasis or pneumon ia. No pneumothorax. Small left effusion cannot be excluded. MEDIASTINUM AND HILAR STRUCTURES: No masses. Contour normal. HEART AND VASCULAR STRUCTURES: Stable in appearance. BONES: No acute findings. HARDWARE: None in the chest. OTHER: No other significant finding. IMPRESSION: Left retrocardiac airspace disease. Possible small left effusion. TECHNICAL DOCUMENTATION: JOB ID: [id number] 2010 [employer]- All Rights Reserved Reading location - IP/workstation name: [email or web address]
[2020-08-07 14:29] VITALS: BP 117/72
--- NOTE | 2020-08-07 14:45 | RADIOLOGY REPORT (SQ) ---
EXAM DESCRIPTION: CTA NECK IMAGES COMPLETED DATE/TIME: 08/07/2020 10:32 am REASON FOR STUDY: neck pain COMPARISON: None. TECHNIQUE: Axial dynamic scanning technique with dynamic contrast enhancement through the extra-crane engineer nial carotid and vertebral arteries. Multiplanar reconstruction. 3-D MIPS and Volume-rendered imag es acquired at the workstation and saved to PACS. Images are reviewed in soft tissue, bone, lung w indows. All CT scanners at this facility use dose modulation, iterative reconstruction, and/or weight based d osing when appropriate to reduce radiation dose to as low as reasonably achievable (ALARA). [facility]: Dose Right [facility]: CareDose [facility]: Dose Right [facility]: Teradose 4D [facility]: [employer] CONTRAST TYPE AND DOSE: 70 mL Omnipaque 350- low osmolar. RENAL FUNCTION: BUN 16, creatinine 0.94 LIMITATIONS: Patient motion FINDINGS: AORTIC ARCH: Normal three-vessel origin. Bilateral subclavian arteries are patent. No d issection. RIGHT CAROTIDS: Patent common, internal and external carotid arteries without suggestion of significa nt stenosis or irregular plaque. No dissection. RIGHT VERTEBRAL: Patent. No dissection. LEFT CAROTIDS: Patent common, internal and external carotid arteries without suggestion of significan t stenosis or irregular plaque. No dissection. LEFT VERTEBRAL: Patent. No dissection. OTHER: Small bilateral thyroid nodules. OTHER: 3-D reconstructions confirm findings. IMPRESSION: NORMAL CTA OF THE EXTRA-CRANIAL CAROTID AND VERTEBRAL ARTERIES. COMMENT: Quality ID #[id number]: Measurements of distal internal carotid diameter were used as the denomina tor for stenosis measurement. TECHNICAL DOCUMENTATION: JOB ID: [id number] Quality ID # 436: Final reports with documentation of one or more dose reduction techniques (e.g., Au tomated exposure control, adjustment of the mA and/or kV according to patient size, use of iterative reconstruction technique) 2010 [employer]- All Rights Reserved Reading location - IP/workstation name: [email or web address]
--- NOTE | 2020-08-07 14:49 | RADIOLOGY REPORT (SQ) ---
EXAM DESCRIPTION: CTA CHEST IMAGES COMPLETED DATE/TIME: 08/07/2020 10:32 am REASON FOR STUDY: neck pain COMPARISON: None. TECHNIQUE: CT scan of the chest performed using helical scanning technique with dynamic intravenous contrast injection. Images reviewed with lung, soft tissue and bone windows. Reconstructed coronal and sagittal MPR images reviewed. Additional 3 dimensional post-processing performed to develop Maximal Intensity Projection images (NH P). All images stored on PACS. All CT scanners at this facility use dose modulation, iterative reconstruction, and/or weight based d osing when appropriate to reduce radiation dose to as low as reasonably achievable (ALARA). [facility]: Dose Right [facility]: CareDose [facility]: Dose Right [facility]: Teradose 4D [facility]: [employer] CONTRAST TYPE AND DOSE: 70 mL Omnipaque 350- low osmolar. Suboptimal opacification in both the aorta and pulmonary arteries. RENAL FUNCTION: BUN 16, creatinine 0.94 RADIATION DOSE: . LIMITATIONS: None. FINDINGS: LUNGS AND PLEURA: No masses, infiltrates, or pneumothorax. No pleural effusions or pleura l calcifications. AORTA AND GREAT VESSELS: No aneurysm. Contrast bolus not optimized for the aorta. HEART: No pericardial effusion. No significant coronary artery calcifications. PULMONARY ARTERIES: No visualize main pulmonary artery emboli. Smaller branches cannot be evaluated due to timing of the bolus. HILAR AND MEDIASTINAL STRUCTURES: No identified masses or abnormal nodes. HARDWARE: None in the chest. UPPER ABDOMEN: No significant findings. Limited exam. THYROID AND OTHER SOFT TISSUES: No masses. No adenopathy. BONES: No acute or significant finding. 3D MIPS: Confirm above findings. OTHER: No other significant finding. IMPRESSION: No thoracic aneurysm or dissection. Limited evaluation of the pulmonary arteries due to timing of the bolus. COMMENT: Quality ID # 436: Final reports with documentation of one or more dose reduction techniques (e.g., Automated exposure control, adjustment of the mA and/or kV according to patient size, use of iterative reconstruction technique) TECHNICAL DOCUMENTATION: JOB ID: [id number] 2010 [employer]- All Rights Reserved Reading location - IP/workstation name: [email or web address]
--- NOTE | 2020-08-07 19:02 | EKG REPORT ---
SEVERITY:- ABNORMAL ECG - ATRIAL FIBRILLATION, V-RATE 72-138 BORDERLINE LEFT AXIS DEVIATION LOW VOLTAGE THROUGHOUT BORDERLINE R WAVE PROGRESSION, ANTERIOR LEADS : Confirmed by: Madhu Mon MD 07-Aug-2020 19:01:42
== END 2020-08-07 14:37 | disposition home or self-care (01) ==
LOC: ER 05:03
DX: M47.812 Spondylosis without myelopathy or radiculopathy, cervical region (principal); R07.9 Chest pain, unspecified; I48.20 Chronic atrial fibrillation, unspecified; R06.02 Shortness of breath; R00.0 Tachycardia, unspecified; I25.2 Old myocardial infarction; J44.9 Chronic obstructive pulmonary disease, unspecified; Z87.01 Personal history of pneumonia (recurrent); Z88.8 Allergy status to other drugs, medicaments and biological substances
CPT/HCPCS: 93005; 99285; 96374; 96375; 36415; 82553; 82550; 85025; 87070; 80053; 81001; 84484; 71045; 70498; 71275; 72125; 72128; 93010; J2270; J2405

== ENCOUNTER → 2020-08-23 | Outpatient (CLI) | payer MEDICARE ==
--- NOTE | 2020-08-23 13:20 | ER [facility] ASSESSMENT REPORT ---
Intake - In the Last 14 days Have you traveled outside [place]?: No Have you been in close contact with someone CONFIRMED: No Worked in Healthcare?: No - Symptoms Subjective Fever([place] feverish): No Chills: No Muscule Aches: No Runny Nose: No Sore Throat: No Cough (New or worsening chronic cough): No Shortness of breath: No Nausea or Vomiting: No Headache: No Abdominal Pain: No Diarrhea(3 or more loose stools in last 24 hours): No - Do you have any of the following Chronic lung disease: Asthma or emphysema or COPD: Yes Chronic Lung Disease Comment: copd Cystic Fibrosis: No Diabetes: No Cardiovascular Disease: Yes Chronic Kidney Disease: No Chronic Liver Disease: No Chronic blood disorder like Sickle Cell Disease: No Weak immune system due to disease or medication: No Neurologic condition that limits movement: No Developmental delay - Moderate to Severe: No Recent (within past 2 weeks) or current : No Morbid Obesity (>100 pounds over ideal weight): No - Objective Temperature: 98.3 F Pulse Rate: 80 Respiratory Rate: 16 Blood Pressure: 99/63 O2 Sat by Pulse Oximetry: 96 Objective: Given above, testing performed: If Testing Performed: Test Specimen Type Sent to General - General Information source: Patient, Relative Notes: Patient presents to the [facility] for screening for the coronavirus. Patient without any symptoms although does have an underlying history of COPD and family just wanted to be certain that patient did not have coronavirus. - Related Data Allergies/Adverse Reactions: acetaminophen [From Tylenol] Allergy (Severe, Verified 12/27/12 10:53) heart races diphenhydramine HCl [From Benadryl] Allergy (Severe, Verified 11/18/12 22:00) MUSCLES JERK AND JUMP esomeprazole magnesium [From Nexium] Allergy (Severe, Verified 12/27/12 10:53) swelling rofecoxib [From Vioxx] Allergy (Severe, Verified 09/08/13 14:29) Flushing ciprofloxacin [From Cipro] Adverse Reaction (Severe, Verified 09/12/15 12:09) SAME LEVAQUIN levofloxacin [From Levaquin] Adverse Reaction (Severe, Verified 09/12/15 12:10) VEIN REACTION DURING INJECTION Past Medical History - General Information source: Patient, Relative - Social History Smoking Status: Never Smoker Family History: Reviewed & Not Pertinent - Past Medical History Cardiac Medical History: Reports: Hx Atrial Fibrillation, Hx Heart Attack - age 50/stress test g corwin 6-8 mo ago ok, Hx Heart Murmur Denies: Hx Congestive Heart Failure, Hx Coronary Artery Disease, Hx Hypercholesterolemia, Hx Hypertension, Hx Peripheral Vascular Disease, Hx Pulmonary Embolism Pulmonary Medical History: Reports: Hx Asthma, Hx COPD, Hx Pneumonia - 1 mo ago,found on CT scan, Hx Sleep Apnea - occas c pap Denies: Hx Bronchitis, Hx Respiratory Failure, Hx Tuberculosis Renal/ Medical History: Reports: Hx Ovarian Cysts - part ovary removed yrs ago Malignancy Medical History: Reports: Hx Breast Cancer, Hx Skin Cancer GI Medical History: Reports: Hx Gastroesophageal Reflux Disease, Hx Irritable Bowel, Hx Ulcer - ? took meds for H-pylori Musculoskeletal Medical History: Reports Hx Arthritis - hips,knees,groin, Denies Hx Fibromyalgia, Denies Hx Multiple Sclerosis, Denies Hx Muscular Dystrophy Psychiatric Medical History: Reports: Hx Depression Denies: Hx Dementia Traumatic Medical History: Denies: Hx Fractures Infectious Medical History: Denies: Hx Hepatitis Past Surgical History: Reports: Hx Cardiac Catheterization, Hx Cholecystectomy, Hx Mastectomy, Hx Open Heart Surgery, Hx Tubal Ligation Physical Exam - Notes Notes: The patient was evaluated during the global Covid 19 pandemic, and that diagnosis was suspected/considered upon their initial presentation. Their evaluation, treatment and testing was consistent with current guidelines for patients who present with complaints or symptoms that may be related to Covid 19. Full physical exam could not be performed due to covid 19 isolation protocols. Constitutional: Nontoxic appearance, no acute distress Eyes: Nonicteric, extraocular movements intact, sclera clear ENT: Posterior pharynx without exudates, no tonsillar hypertrophy Cardiovascular: Heart rate regular, no JVD Respiratory: Breath sounds clear bilaterally, nonlabored breathing, no use of accessory muscles, no tachypnea Gastrointestinal: Abdomen not distended Muculoskeletal: Moves all extremities well Skin: Normal color Neuro: Awake alert oriented, normal speech Psych: Normal mood and affect Diagnostic Results Laboratory Results: Patient presents with upper respiratory symptoms worrisome for possible Covid 19. Patient does not have emergency worrying symptoms such as difficulty breathing, shortness of breath, chest pain, pressure, confusion or cyanosis. Patient appears suitable for discharge as vital signs are stable and patient is nontoxic in appearance. Good return precautions have been discussed with patient, patient verbalized understanding and is agreeable with discharge plan of care at this time. Patient Education/Counseling Counseling/Education: Patient was provided with discharge information including: As a person under investigation for Covid 19, the [facility] of Health and Human Services, division of public health advises you to adhere to the following guidance until your test results are reported to you. If your test result is positive, you will receive additional information from your provider and your local health department at that time. Remain at home until you are cleared by the health provider or public health authorities. Keep a log of visitors to your home, notify any visitors to your home of your isolation status. If you plan to move to a new address or leave the county, notify the local health department in your County. Call your doctor or seek care if you have an urgent medical need. Before seeking medical care, call ahead to get instructions from the provider before arriving at the medical office clinic or hospital. Notify them that you are being tested for the virus that causes Covid 19 so that arrangements can be made, as necessary, to prevent transmission to others in the healthcare setting. Next, notify the local health department in your county. If a medical emergency arises and you need to call 911, inform the first responders that you are being tested for the virus that causes Covid 19. Next, notify the local health department in your county. [facility] Discharge - Discharge Condition: Stable Disposition: Home; Selfcare
[2020-08-23 13:49] VITALS: BP 99/63
== END ==
LOC: RDC 13:03
PROVIDERS: ATTEND Nurse Practitioner Family
DX: Z20.828 Contact with and (suspected) exposure to other viral communicable diseases (principal); J44.9 Chronic obstructive pulmonary disease, unspecified; K21.9 Gastro-esophageal reflux disease without esophagitis; I48.91 Unspecified atrial fibrillation; I25.2 Old myocardial infarction; Z85.3 Personal history of malignant neoplasm of breast; M13.89 Other specified arthritis, multiple sites; Z88.1 Allergy status to other antibiotic agents; Z88.8 Allergy status to other drugs, medicaments and biological substances
CPT/HCPCS: 99201; U0003; G0463; C9803; 87635; 99211